=== PATIENT | male | born 2000 | race Two or more races ===

== ENCOUNTER 2021-04-06 22:50 | Emergency (ER) | payer SELFPAY ==
[~2021-04-06] VITALS: Ht 185.4 cm; Wt 90.7 kg
[2021-04-06] MEDS ORDERED: PROPOFOL 10 MG/ML 20 ML IV ONE (23:15)
[2021-04-06] MEDS ORDERED: PROPOFOL 100 ML IV ONE (23:18)
[2021-04-07 00:28] VITALS: BP 174/90
== END 2021-04-07 00:42 | disposition home or self-care (01) ==
LOC: ER 22:50
DX: S43.005A Unspecified dislocation of left shoulder joint, initial encounter (principal); X58.XXXA Exposure to other specified factors, initial encounter; Y93.89 Activity, other specified; Y92.89 Other specified places as the place of occurrence of the external cause; Y99.8 Other external cause status
CPT/HCPCS: 23650; 71045; 73030; 99152; 99153; 99285; J2704; J7030